=== PATIENT | female | born 1955 | race African-American/Black ===

== ENCOUNTER 2018-05-02 08:16 | Outpatient (CLI) | payer BC ==
--- NOTE | 2018-05-10 10:41 | MMO ---
BILATERAL SCREENING MAMMOGRAM: INDICATION: Annual exam. COMPARISON: Prior exam dated 01/02/16 and 02/21/14. FINDINGS: The interpretation of this exam was assisted with computer-aided detection. The breast parenchyma is heterogeneously dense. There are benign-appearing calcifications bilaterally. No suspicious mass, cluster of microcalcifications, or area of architectural distortion is evident. IMPRESSION: BI-RADS category 2 - benign findings. Recommend routine annual mammographic screening. BIRADS 2: Benign Finding(s) Routine annual screening mammography (for women over age 40) POS: [facility]
== END 2018-05-02 08:17 | disposition home or self-care (01) ==
LOC: SCSMAMMO 08:16
PROVIDERS: ATTEND Internal Medicine
DX: Z12.31 Encounter for screening mammogram for malignant neoplasm of breast (principal); Z12.11 Encounter for screening for malignant neoplasm of colon; E78.5 Hyperlipidemia, unspecified
CPT/HCPCS: 77067

== ENCOUNTER 2021-06-30 16:39 | Emergency (ER) | payer OTHER, BC ==
[2021-06-30] MEDS ORDERED: Ibuprofen 200 MG TAB ONE (20:39)
== END 2021-06-30 20:32 | disposition home or self-care (01) ==
LOC: ERS 16:39
DX: S16.1XXA Strain of muscle, fascia and tendon at neck level, initial encounter (principal); I10 Essential (primary) hypertension; V59.9XXA Occupant (driver) (passenger) of pick-up truck or van injured in unspecified traffic accident, initial encounter
CPT/HCPCS: 99283